=== PATIENT | male | born 1940 ===

== ENCOUNTER 2022-05-09 10:33 | Inpatient (IN) | payer MEDICARE ==
[2022-05-09] MEDS ORDERED: Acetaminophen 500 MG Tab PO ONE (11:39)
[2022-05-09 11:43] LABS: ANION GAP 9.1 mEq/L (7-13)
[2022-05-09] MEDS ORDERED: cefTRIAXone 2 GM in Sodium Chloride 0.9% 100 ML IV ONE (12:39)
[2022-05-09] MEDS ORDERED: Polyethylene Glycol 3350 Powder 17 GM Packet PO PRN (14:48)
[2022-05-09] MEDS ORDERED: Zolpidem 5 MG Tab PO PRN (14:48)
[2022-05-09] MEDS ORDERED: Docusate Sodium 100 MG Cap PO PRN (14:48)
[2022-05-09] MEDS ORDERED: HYDROmorphone 0.5 MG/0.5 ML Syringe IVPUSH PRN (14:48)
[2022-05-09] MEDS ORDERED: Bisacodyl 5 MG Tab PO PRN (14:48)
[2022-05-09] MEDS ORDERED: Magnesium Hydroxide 400 MG/5 ML Susp 30 ML Cup PO PRN (14:48)
[2022-05-09] MEDS ORDERED: Albuterol/Ipratropium 3.0-0.5 MG/3 ML Neb Soln NEB PRN (14:48)
[2022-05-09] MEDS ORDERED: Acetaminophen/HYDROcodone 325-5 MG Tab PO PRN (14:48)
[2022-05-09] MEDS ORDERED: Ondansetron 4 MG/2 ML SDV IVPUSH PRN (14:48)
[2022-05-09] MEDS ORDERED: Acetaminophen 325 MG Tab PO PRN (14:48)
[2022-05-09] MEDS ORDERED: Metoprolol Tartrate 5 MG/5 ML SDV IVPUSH PRN (14:57)
[2022-05-09] MEDS ORDERED: Sodium Chloride 0.9% 250 ML IV SCH (15:00)
[2022-05-09] MEDS: Sodium Chloride 0.9% 1,000 ML IV SCH (15:48)
[2022-05-09] MEDS: Piperacillin/Tazobactam 3.375 GM in Sodium Chloride 0.9% 100 ML IV SCH ×2 (17:20→23:00)
[2022-05-09] MEDS: Naproxen 250 MG Tab PO SCH (20:00)
[2022-05-09] MEDS: Saccharomyces Boulardii (Probiotic) 250 MG Cap PO SCH (20:00)
[2022-05-09] MEDS: Rosuvastatin 10 MG Tab PO SCH (20:01)
[2022-05-09] MEDS: Sodium Chloride 0.9% 10 ML Syringe FLUSH SCH (20:34)
[2022-05-09] MEDS: hydrALAZINE 20 MG/ML SDV IVPUSH PRN (23:00)
[2022-05-10] MEDS: Piperacillin/Tazobactam 3.375 GM in Sodium Chloride 0.9% 100 ML IV SCH ×4 (05:01→23:04)
[2022-05-10] MEDS ORDERED: Non-Formulary Medication 1 Each (Pantoprazole [Pantoprazole] 20 MG Tab.Dr) PO SCH (06:00)
[2022-05-10 07:22] LABS: ANION GAP 12.2 mEq/L (7-13)
[2022-05-10] MEDS: Sodium Chloride 0.9% 10 ML Syringe FLUSH SCH ×2 (09:22→21:11)
[2022-05-10] MEDS: Saccharomyces Boulardii (Probiotic) 250 MG Cap PO SCH ×2 (09:22→20:57)
[2022-05-10] MEDS: Clopidogrel 75 MG Tab PO SCH (09:22)
[2022-05-10] MEDS: Naproxen 250 MG Tab PO SCH ×2 (09:22→20:57)
[2022-05-10] MEDS: amLODIPine 5 MG Tab PO SCH (09:23)
[2022-05-10] MEDS ORDERED: Magnesium Sulfate/Water 2 GM in Premix Bag 1 BAG IV ONE (10:07)
[2022-05-10] MEDS ORDERED: Potassium Chloride 10 MEQ Tab.ER PO ONE (11:30)
[2022-05-10] MEDS: Sodium Chloride 0.9% 1,000 ML IV SCH (14:46)
[2022-05-10] MEDS: hydrALAZINE 20 MG/ML SDV IVPUSH PRN (16:27)
[2022-05-10] MEDS: Pantoprazole 40 MG Tab.CR PO SCH (16:30)
[2022-05-10] MEDS: Rosuvastatin 10 MG Tab PO SCH (20:57)
[2022-05-11] MEDS: Piperacillin/Tazobactam 3.375 GM in Sodium Chloride 0.9% 100 ML IV SCH ×4 (05:22→23:10)
[2022-05-11] MEDS: Pantoprazole 40 MG Tab.CR PO SCH ×2 (05:23→17:35)
[2022-05-11 06:50] LABS: ANION GAP 12.7 mEq/L (7-13)
[2022-05-11] MEDS ORDERED: Loperamide 2 MG Cap PO PRN (07:53)
[2022-05-11] MEDS ORDERED: Simethicone 80 MG Tab.Chew PO PRN (07:54)
[2022-05-11] MEDS: Saccharomyces Boulardii (Probiotic) 250 MG Cap PO SCH ×2 (09:43→20:21)
[2022-05-11] MEDS: amLODIPine 5 MG Tab PO SCH (09:44)
[2022-05-11] MEDS: Clopidogrel 75 MG Tab PO SCH (09:44)
[2022-05-11] MEDS: Sodium Chloride 0.9% 1,000 ML IV SCH (12:11)
[2022-05-11] MEDS: Sodium Chloride 0.9% 10 ML Syringe FLUSH PRN ×2 (14:28→20:22)
[2022-05-11] MEDS: hydrALAZINE 20 MG/ML SDV IVPUSH PRN ×2 (17:26→23:08)
[2022-05-11] MEDS: Sodium Chloride 0.9% 10 ML Syringe FLUSH SCH (20:21)
[2022-05-11] MEDS: Rosuvastatin 10 MG Tab PO SCH (20:21)
[2022-05-12] MEDS: Piperacillin/Tazobactam 3.375 GM in Sodium Chloride 0.9% 100 ML IV SCH ×2 (05:14→13:34)
[2022-05-12] MEDS: Pantoprazole 40 MG Tab.CR PO SCH (05:14)
[2022-05-12] MEDS: Sodium Chloride 0.9% 10 ML Syringe FLUSH SCH ×2 (05:50→08:26)
[2022-05-12 07:10] LABS: ANION GAP 10.5 mEq/L (7-13)
[2022-05-12] MEDS: Saccharomyces Boulardii (Probiotic) 250 MG Cap PO SCH (08:19)
[2022-05-12] MEDS: amLODIPine 5 MG Tab PO SCH (08:19)
[2022-05-12] MEDS: Clopidogrel 75 MG Tab PO SCH (08:19)
[2022-05-12] MEDS: hydrALAZINE 20 MG/ML SDV IVPUSH PRN (08:19)
[2022-05-12] MEDS ORDERED: Naproxen 250 MG Tab PO STA (11:02)
[2022-05-12] MEDS ORDERED: Losartan 25 MG Tab PO STA (11:02)
== END 2022-05-12 14:15 | disposition home or self-care (01) | DRG 683 ==
LOC: DL.ED 10:33 → DL.MS 13:41 → DL.ED 14:05
PROVIDERS: ADMIT Internal Medicine; ATTEND Internal Medicine
DX: N17.9 Acute kidney failure, unspecified (principal); E87.1 Hypo-osmolality and hyponatremia; N39.0 Urinary tract infection, site not specified; N45.2 Orchitis; N43.3 Hydrocele, unspecified; D50.9 Iron deficiency anemia, unspecified; N50.812 Left testicular pain; E88.09 Other disorders of plasma-protein metabolism, not elsewhere classified; Z20.822 Contact with and (suspected) exposure to COVID-19; R31.9 Hematuria, unspecified; E87.8 Other disorders of electrolyte and fluid balance, not elsewhere classified; E87.6 Hypokalemia; N18.31 Chronic kidney disease, stage 3a; B95.2 Enterococcus as the cause of diseases classified elsewhere; E78.00 Pure hypercholesterolemia, unspecified; I12.9 Hypertensive chronic kidney disease with stage 1 through stage 4 chronic kidney disease, or unspecified chronic kidney disease; H54.7 Unspecified visual loss; N50.3 Cyst of epididymis; K21.9 Gastro-esophageal reflux disease without esophagitis; Z90.5 Acquired absence of kidney; Z88.1 Allergy status to other antibiotic agents; Z79.899 Other long term (current) drug therapy; Z79.02 Long term (current) use of antithrombotics/antiplatelets
CPT/HCPCS: 36415; 76870; 80048; 80053; 81001; 83605; 83735; 84145; 85025; 86140; 87086; 87088; 87186; A9270-GY; J0360; J0696; J2543; J3475; J3490; J7030; U0002